=== PATIENT | male | born 2000 ===

== ENCOUNTER 2023-07-29 12:56 | Emergency (ER) | payer OTHER ==
[~2023-07-29] VITALS: Ht 182.9 cm; Wt 92.7 kg
[2023-07-29 13:13] VITALS: BP 147/91; PULSE 74; RESP 16; TEMP 98.5; O2SAT 98
[2023-07-29] MEDS ORDERED: NAPR-56 PO ×2 (13:19→13:25)
== END 2023-07-29 13:28 | disposition home or self-care (01) ==
LOC: ER 12:57
DX: S06.0X0A Concussion without loss of consciousness, initial encounter (principal); X58.XXXA Exposure to other specified factors, initial encounter; Y93.89 Activity, other specified; Y92.89 Other specified places as the place of occurrence of the external cause; Y99.8 Other external cause status
CPT/HCPCS: 99282